=== PATIENT | female | born 1965 | race Caucasian/White ===

== ENCOUNTER → 2018-02-02 09:36 | Outpatient (CLI) | payer OTHER, SELFPAY ==
[2018-02-02 13:26] LABS: Absolute Lymphocyte Count 1.48 X10^3/ul (0.83-4.51); Absolute Neutrophil Count 3.8 X10^3/uL (2.0-7.7); Basophil# 0.01 X10^3/uL; Basophil% 0.2 % (0-1); Eosinophil# 0.07 X10^3/uL; Eosinophils% 1.2 % (0-5); Hematocrit 43.1 % (37-47); Hemoglobin 13.9 g/dl (12.0-15.0); Lymphocyte # 1.48 X10^3/ul (4.0); Lymphocyte % 25.7 % (19-41); Mean Corp Hgb Conc 32.3 g/gl (32-36); Mean Corpuscular Hgb 29.6 pg (27.0-32.0); Mean Corpuscular Volume 91.7 fL (81-99); Mean Platelet Vol. 10.6 fl (6.2-12.0); Monocyte# 0.36 X10^3/uL; Monocyte% 6.3 % (0-10); Neutrophil # 3.83 X10^3/uL (2.7-7.7); Neutrophil % 66.6 % (47-70); Platelet Count 228 K/mm3 (150-450); RBC Distribution Width CV 13.1 % (11.6-14.6); RBC Distribution Width SD 44.1 fl (35.1-43.9); White Blood Count 5.8 K/mm3 (4.4-11.0)
[2018-02-02 13:30] LABS: POSITIVE COUNT NO; POSITIVE DIFFERENTIAL NO; POSITIVE MORPHOLOGY NO
[2018-02-02 13:31] LABS: ALB/GLOB Ratio 0.9 RATIO (0.9-2.4); AST(SGOT) 25 U/L (15-37); Alanine Aminotransfer ALT/SGPT 45 U/L (13-56); Albumin, Serum 3.7 g/dL (3.2-5.0); Alkaline Phosphatase 83 U/L (45-117); Anion Gap 7 (5-15); BUN 13 mg/dL (7-18); BUN/Creat Ratio 17.4 RATIO (10-20); Calcium,Total 8.4 mg/dL (8.5-10.1); Chloride 104 mmol/L (98-107); Creatinine, Serum 0.75 mg/dL (0.55-1.02); EST Glomerular Filtration Rate 87 mL/min (>60); Est Glom Filt Rate - Afr Amer 105 mL/min (>60); Globulin 4.1 g/dL (2.2-4.2); Glucose 78 mg/dL (74-106); Protein, Total 7.8 g/dL (6.4-8.2); Sodium Level 138 mmol/L (136-145); Thyroid Stim Hormone (TSH) 2.18 uIU/mL (0.358-3.74)
[2018-02-11 11:52] LABS: HPV APTIMA, High Risk Negative (Negative)
== END ==
PROVIDERS: Family Provider Internal Medicine; PCP Internal Medicine; Visit Provider Nurse Practitioner Women's Health
DX: Z12.4 Encounter for screening for malignant neoplasm of cervix (principal); R42 Dizziness and giddiness
CPT/HCPCS: 36415; 80053; 84443; 85025; 88175; G0145

== ENCOUNTER → 2018-02-12 08:06 | Outpatient (CLI) | payer SELFPAY ==
--- NOTE | 2018-02-12 08:15 | BI_ITS ---
MAMMOGRAPHY - BILATERAL SCREENING REASON FOR EXAM: Female, 52 years old. Routine annual screening examination. PERTINENT HISTORY: Non-contributory. TECHNIQUE: Digital bilateral breast melina (3D mammographic acquisition) in the CC and MLO projections. 2-D mediolateral oblique (MLO) and craniocaudad (CC) views of both breasts were obtained. CAD: Full Field Digital Mammography with Computer Added Detection was performed. COMPARISON: Comparison is made with prior outside examination dated October 08, 2015. FINDINGS: Breast Composition: The breasts are heterogeneously dense, which may obscure small masses. There are no dominant masses or suspicious calcifications. Stable benign-appearing bilateral axillary lymph nodes. No other significant abnormalities are identified. There has been no significant change since the prior study. BI/SCREENING MAMM (CAD), BILAT IMPRESSION: Stable bilateral screening mammogram. Yearly follow-up mammogram recommended. (A) ASSESSMENT CATEGORY: BIRADS Category 2: Benign. A letter regarding these results will be sent to the patient by the facility within 30 days. Approximately 10% of breast cancers are not detected by mammography. A normal mammogram should not delay biopsy of a clinically suspicious abnormality. [id number] Electronically Signed: Bacilio Alejandre MD at 9:21 EDT Tel [phone], Service support ,
== END ==
PROVIDERS: Family Provider Internal Medicine; PCP Internal Medicine; Visit Provider Nurse Practitioner Women's Health
DX: Z12.31 Encounter for screening mammogram for malignant neoplasm of breast (principal)
CPT/HCPCS: 77062; 77067; G0279

== ENCOUNTER → 2018-02-24 12:58 | Outpatient (CLI) | payer SELFPAY ==
--- NOTE | 2018-02-24 13:01 | US_ITS ---
STUDY: ULTRASOUND OF THE FEMALE PELVIS - COMPLETE REASON FOR EXAM: Female, 52 years old. Irregular menses. LMP: 02/03/2018 TECHNIQUE: Transabdominal and Transvaginal TECHNICAL QUALITY: Adequate. COMPARISON: None. FINDINGS: The uterus is retroverted and is in a midline position. The uterus measures 10.0 x 5.9 x 6.3 cm. The endometrium measures 12.8 mm in thickness, and is hyperechoic. Within the cervix there is a rounded 1.1 x 0.5 cm hypoechoic with peripheral hyperechoic foci. There is trace adjacent fluid within the cervix. Within the posterior uterine fundus there is intramural 2.7 x 2.7 x 2.8 cm hypoechoic rounded focus that contains calcifications consistent with an intramural fibroid. There is an additional subserosal fibroid arising from the uterine fundus which measures 2.5 x 2.5 x 3.4 cm. I.U.D. - The patient does not have an I.U.D. The right ovary is visualized. The right ovary measures 2.7 x 2.3 x 1.4 cm. There is no right ovarian cyst or ovarian mass. There is no visualized right adnexal mass or complex lesion. There is normal arterial and normal venous vascularity. The left ovary is visualized. The left ovary measures 3.3 x 1.9 x 2.0 cm. There is a simple left ovarian cyst which measures 1.5 x 1.1 x 1.5 cm. There is normal arterial and normal venous vascularity. There is a small amount of free fluid that is likely physiologic. Polycystic ovary disease: No. US/Pelvic (Non ) IMPRESSION: Thickened endometrial stripe measuring up to 12.8 mm. Indeterminate rounded 1.1 x 0.5 cm focus within the cervix which may reflect an underlying polyp, submucosal fibroid or possible blood clot. Uterine fibroids. Electronically Signed: Becka Walters MD at 16:04 EDT Tel , Service support ,
--- NOTE | 2018-02-24 13:01 | US_ITS ---
STUDY: ULTRASOUND OF THE FEMALE PELVIS - COMPLETE REASON FOR EXAM: Female, 52 years old. Irregular menses. LMP: 02/03/2018 TECHNIQUE: Transabdominal and Transvaginal TECHNICAL QUALITY: Adequate. COMPARISON: None. FINDINGS: The uterus is retroverted and is in a midline position. The uterus measures 10.0 x 5.9 x 6.3 cm. The endometrium measures 12.8 mm in thickness, and is hyperechoic. Within the cervix there is a rounded 1.1 x 0.5 cm hypoechoic with peripheral hyperechoic foci. There is trace adjacent fluid within the cervix. Within the posterior uterine fundus there is intramural 2.7 x 2.7 x 2.8 cm hypoechoic rounded focus that contains calcifications consistent with an intramural fibroid. There is an additional subserosal fibroid arising from the uterine fundus which measures 2.5 x 2.5 x 3.4 cm. I.U.D. - The patient does not have an I.U.D. The right ovary is visualized. The right ovary measures 2.7 x 2.3 x 1.4 cm. There is no right ovarian cyst or ovarian mass. There is no visualized right adnexal mass or complex lesion. There is normal arterial and normal venous vascularity. The left ovary is visualized. The left ovary measures 3.3 x 1.9 x 2.0 cm. There is a simple left ovarian cyst which measures 1.5 x 1.1 x 1.5 cm. There is normal arterial and normal venous vascularity. There is a small amount of free fluid that is likely physiologic. Polycystic ovary disease: No. US/Transvaginal Non- IMPRESSION: Thickened endometrial stripe measuring up to 12.8 mm. Indeterminate rounded 1.1 x 0.5 cm focus within the cervix which may reflect an underlying polyp, submucosal fibroid or possible blood clot. Uterine fibroids. Electronically Signed: Becka Walters MD at 16:04 EDT Tel , Service support ,
== END ==
PROVIDERS: Family Provider Internal Medicine; PCP Internal Medicine; Visit Provider Nurse Practitioner Women's Health
DX: N92.6 Irregular menstruation, unspecified (principal)
CPT/HCPCS: 76830; 76856

== ENCOUNTER 2018-05-05 12:22 | Day surgery (SDC) | payer SELFPAY ==
[2018-04-30 11:41] LABS: Absolute Lymphocyte Count 1.71 X10^3/ul (0.83-4.51); Absolute Neutrophil Count 3.4 X10^3/uL (2.0-7.7); Basophil# 0.01 X10^3/uL; Basophil% 0.2 % (0-1); Eosinophil# 0.09 X10^3/uL; Eosinophils% 1.7 % (0-5); Hematocrit 40.3 % (37-47); Hemoglobin 13.1 g/dl (12.0-15.0); Lymphocyte # 1.71 X10^3/ul (4.0); Lymphocyte % 31.5 % (19-41); Mean Corp Hgb Conc 32.5 g/gl (32-36); Mean Corpuscular Hgb 29.6 pg (27.0-32.0); Mean Corpuscular Volume 91.2 fL (81-99); Monocyte# 0.21 X10^3/uL; Monocyte% 3.9 % (0-10); Neutrophil # 3.41 X10^3/uL (2.7-7.7); Neutrophil % 62.7 % (47-70); POSITIVE COUNT NO; POSITIVE DIFFERENTIAL NO; POSITIVE MORPHOLOGY NO; Platelet Count 212 K/mm3 (150-450); RBC Distribution Width CV 12.8 % (11.6-14.6); RBC Distribution Width SD 42.4 fl (35.1-43.9); Red Blood Count 4.42 M/mm3 (4.2-5.4); White Blood Count 5.4 K/mm3 (4.4-11.0)
--- NOTE | 2018-05-04 22:18 | HP.PCM_ITS ---
History and Physical Date of Admission: 05/05/18 Vital Signs 03/15/18 Height 5 ft 2 in 03/15/18 Weight: 132 lb 4 oz 03/15/18 Body Mass Index (BMI) 24.2 03/15/18 Blood Pressure 103/63 Intake Visit Reasons: Surgical Consult D&C Chief Complaint: surgical consult Eyewear Consultant Required: No Is patient in pain?: No Allergies No Known Allergies Allergy (Verified 03/15/18 08:15) Medications NK [NK] 02/02/18 [History Confirmed 03/15/18] Is last menstrual period known: No Post menopausal: No Patient : No : No PFSH Surgical History Status post right foot surgery (Resolved) Family History Sister Diabetes Father Prostate cancer Social History Smoking Status: Never smoker alcohol intake: never substance use type: does not use caffeine: Yes what type of physical activity do you participate in: none seatbelt use: always do you feel safe at home: Yes additional social history: - Herman- Wilbert portillo Patient is stay at home mom HPI Surgical Consult D&C: Details: CAROLYN BOBO is a 52 year old who presents for abnormal ultrasound. she has had some skipped menses and climacteric complaints. she has an endocervical polyp seen on ultrasound. she denies any postcoital bleeding or ir regular bleeding in between menses. Pregancy History 4 Elective abortions Hx Para 4 Spontaneous abortions Hx # Term Pregnancies Ectopic pregnancies Hx # Pregnancies Multiple births # of living children Past Pregnancies Del. Date Name GA/Weeks Outcome Route Bth Weight Infant Gen Labor Lgth Anesthesia Del Locatn Provider FOB Unknown Claire-1987 Unknown Genie-1989 Unknown Rashida-1993 Unknown Bertin-1996 ROS Const Constitutional: Denies poor appetite, headache(s), fever(s), increased appetite, weight gain, weight loss or fatigue ENT ENT: Denies dry mouth GI GI: Reports as per HPI; denies vomiting, nausea, abdominal pain or constipation : Reports as per HPI; denies difficulty urinating, blood in urine, pelvic pain, urinary frequency, urinary incontinence, urinary hesitancy, urinary urgency, vaginal discharge, vaginal dryness, vaginal odor, vaginal itching, other, painful urination or nipple discharge Skin Skin/Breast: Denies hair loss, change in hair, dry skin, breast pain, breast skin changes, breast lump or nipple discharge Exam Const General: cooperative, healthy appearing, comfortable, no acute distress, well developed Nutritional Appearance: average body habitus Orientation: alert [facility] Head: normal to inspection, normocephalic Ears: hearing grossly normal bilaterally, external ears normal Nose: external nose normal, nares normal Face and sinus: normal facial exam Neck Neck: normal visual inspection, trachea midline, no lymphadenopathy Thyroid: thyroid normal Resp Effort & Inspection: normal respiratory effort Musc Other: gross motor intact no deficits, full bilateral strength Skin General: no rashes or lesions noted Neuro Motor: muscle tone normal throughout Assessment & Plan Problems 1. Endocervical polyp N84.1 plan d and c hysteroscopy polypectomy Plan discussed surgical risks including risks of anesthesia, infection, bleeding, injury to bowel, bladder or blood vessels, and patient wishes to proceed with surgery. UPDATE- I have seen the patient and performed any clinically relevant updates to the history and physical exam. Dinora Mcbride MD
[2018-05-05] VITALS (9 sets, daily range): BP systolic 114–124; BP diastolic 63–77; PULSE 53–72; RESP 16; TEMP 36.2–36.6; O2SAT 98–100; BMI 24.4
[2018-05-05 13:11] LABS: Internal QC Validated? YES +Cl - CLEAR BKGD; Pregnancy, Urine Negative Negative
--- NOTE | 2018-05-05 14:05 | EMB_PTH ---
PATIENT: CAROLYN BOBO LOC[place] [facility] [place][id number] AGE/SX: 52/F ROOM: RE05/05/[address]: Dr. Dinora Mcbride MD : 1965 BED: DIS: 05/05/2018 SPEC #: [id number] RECD: 05/05/18 15:10 STATUS: JOSE F KESHIA #: [id number] CLARICE: 05/05/18 14:[address]: Dinora Mcbride DEPT: SURGICAL PATHOLOGY RECD BY: Adelfo Concepcion ENTERED: 05/06/18 11:04 SP TYPE: ENDOM BX/C MARIPOSA DR: Dr. Jass Arango MD Tissues: Endometrium, NOS Procedures: Surgery Specimen Level IV HEADER OPERATION: Hysteroscopy, D & C, polypectomy, Symphion PRE-OP DIAGNOSIS: Endocervical polyp TISSUE SUBMITTED: Endometrial curettings MICROSCOPIC DIAGNOSIS Endometrial curettings: Proliferative endometrium. Fragments of benign endocervical mucosa. See comment. SJ:stacey 05/09/18 COMMENT Obvious changes consistent with endocervical polyp are not identified. MICROSCOPIC DESCRIPTION Slides are reviewed. GROSS DESCRIPTION Received in fixative is one container labeled with the patient's name and designated endometrial curettings. The specimen consists of multiple fragments of hemorrhagic soft tissue that in aggregate measure 3 x 2.5 x 0.3 cm. The entire specimen is submitted in one cassette. / MANDEEP:stacey 05/06/18 TC:5 CPT: 23947
--- NOTE | 2018-05-05 14:52 | PCM.OPRPT ---
Problem List (1) Endocervical polyp Status: Acute Comment: plan d and c hysteroscopy polypectomy Report of Operation Date of Procedure: 05/05/18 Pre-Operative Diagnosis: endocervical polyp Post-Operative Diagnosis: normal lining Surgery/Procedure Performed:: d and c hysteroscopy Description of Surgical Findings:: atrophic lining, mucous filled endocervical canal Type of Anesthesia:: Local MAC Special Medications: none Specimen's removed: emc Drains: none Estimated Blood Loss (mL): minimal Fluids Replaced: crystalloid Description of Procedure: Patient was prepped and draped in a normal sterile fashion under MAC anesthesia. A weighted speculum was placed in the vagina and the anterior lip of the cervix was grasped with a single-tooth tenaculum. A paracervical block was placed with 1% lidocaine. During cervical dilation there was a large amount of mucus that was expressed from the endocervical canal upon first entering and with the dilator cervix was progressively dilated to allow passage of a 5 mm hysteroscope. The lining was fully visualized and noted to have an atrophic appearance with no gross abnormalities to either the uterine lining or the endocervical canal. Uterine sounded to 7 cm. Curettage was performed and moderate amount of tissue was removed, sent to pathology. All instruments were removed from the vagina and excellent hemostasis was noted. Patient was awoken and taken to recovery in stable condition. Grafts/Implants Used: none - Complications none
--- NOTE | 2018-05-05 14:55 | DCINST_ITS ---
Discharge Diet: No Restrictions Discharge Activity: Return to Normal Activity, May Shower, May Take a Tub Bath Allergies/Adverse Reactions: Allergies No Known Allergies Allergy (Verified 03/15/18 08:15) Medications to take at Discharge NK 02/02/18 Primary Care Physician: Jass Arango MD [Primary Care Provider] - Test Results: Test results from this visit will be discussed in further detail at your follow- up appointment, if applicable. Please Follow Up With: Dinora Mcbride MD - [phone]
== END 2018-05-05 16:29 | disposition home or self-care (01) ==
LOC: SDC 12:28 → AC 12:29
PROVIDERS: Anesthesiology; Family Provider Internal Medicine; PCP Internal Medicine; Referring Provider Obstetrics & Gynecology; Visit Provider Obstetrics & Gynecology
PROC: (CPT 58558; principal; 2018-05-05 13:50)
DX: N84.1 Polyp of cervix uteri (principal)
CPT/HCPCS: 00952; 58558; 36415; 81025; 85025; 86850; 86900; 88305; J7120; J2405

== ENCOUNTER → 2023-02-22 | Outpatient (CLI) | payer SELFPAY | END | disposition home or self-care (01) | LOC: LABSPEC 16:56 | PROVIDERS: Referring Provider Physician Assistant; Visit Provider Physician Assistant | DX: R39.9 Unspecified symptoms and signs involving the genitourinary system (principal) | CPT/HCPCS: 87086; 87088 ==